=== PATIENT | male | born 2000 | race Caucasian/White ===

== ENCOUNTER 2021-07-01 22:22 | Emergency (ER) | payer OTHER, SELFPAY ==
--- NOTE | ~2021-07-01 | CT_ITS ---
EXAMINATION: NONCONTRAST HEAD CT NONCONTRAST CERVICAL SPINE CT INDICATION INFORMATION: Syncope, struck head, confused, slow speech COMPARISON: None TECHNIQUE: Separate noncontrast CT examinations of the head and cervical spine were performed. Coronal head CT images and coronal and sagittal cervical spine images were created at the technologist workstation. DLP: 1120 mGy-cm DOSE LOWERING TECHNIQUES: This CT examination was performed using dose optimization techniques as appropriate, variously including the following: - Automated exposure control - Adjustment of mA and/or kV according to patient size (this includes techniques or standardized protocols for targeted exams were dose is matched to indication/reason for exam; i.e. extremities or head) - Use of iterative reconstruction technique FINDINGS: Head: There is no evidence of acute intracranial hemorrhage or territorial infarction. No abnormal mass-effect or midline shift is seen. Mayer to white matter differentiation is well preserved. No extra-axial fluid collections are identified. The ventricles are normal in size. There is no abnormal attenuation within the brain parenchyma. The osseous structures and soft tissues are normal. The mastoid air cells and visualized portions of the paranasal sinuses are well-aerated. Cervical spine: There is anatomic alignment of the vertebral bodies and posterior elements. Vertebral body heights are maintained. There is mild disc space narrowing of the mid to lower cervical spine with minimal chronic appearing endplate irregularity. No evidence of acute fracture. No prevertebral soft tissue swelling. Visualized portions of the lung apices are unremarkable. The thyroid gland is unremarkable. CT/CT cervical spine wo con IMPRESSION: No acute findings identified in the head or cervical spine.
--- NOTE | 2021-07-01 22:27 | ECG_ITS ---
Test Reason : SYNCOPE Blood Pressure : / mmHG Vent. Rate : 062 BPM Atrial Rate : 062 BPM P-R Int : 178 ms QRS Dur : 106 ms QT Int : 398 ms P-R-T Axes : 062 079 042 degrees QTc Int : 403 ms Normal sinus rhythm Intra-ventricular conduction delay Possible RSR' or QR pattern in V1 suggests right ventricular conduction delay Borderline ECG No previous ECGs available Referred By: Debbie Vaughn Electronically Signed By:TAN STRAUSS MD
--- NOTE | 2021-07-01 22:33 | ED.SYNCOPE ---
HPI - Syncope General Chief Complaint: Seizure Stated Complaint: syncope Time Seen by Provider: 07/01/21 22:27 Source: patient Mode of arrival: ambulatory Limitations: no limitations and other (poor historian) History of Present Illness HPI narrative: 21-year-old male no known medical history presents to the emergency department via EMS status post an unwitnessed syncopal episode. Patient tells me that he had a small cut on his right pointer finger, he saw the blood, he immediately started experiencing severe chest pain, in seconds later he passed out in the bathroom. He tells me this has never happened to him before. After this happened, he felt very shaky. He states that the chest pain subsided. He tells me he was smoking today, but denies any other drug use. Patient is very slow to respond to my questions. He denies shortness of breath, fevers, chills, nausea, vomiting, diarrhea, abdominal pain, headache, vision changes, neck pain. He denies cardiac family history. No incontinence with this episode. No hx of syncope or seizure MD complaint: loss of consciousness Onset (ago): minute(s) (30) Description of event: post-event confusion Prodromal symptoms: other (chest pain ) Witnessed: No Context: at rest Current symptoms: lightheaded and other (slow to respond ) Treatments prior to arrival: none Related Data Allergies Allergy/AdvReac Type Severity Reaction Status Date / Time Unable to Assess Allergy Unverified 07/01/21 22:27 Review of Systems Review of Systems: Constitutional : No Weight loss, No Fever, No Chills, No Fatigue, No Malaise ENT/Mouth : No sore throat, No Rhinorrhea Eyes: No Eye Pain, No Swelling, No Redness Cardiovascular : No Chest Pain, No SOB, No Dyspnea on Exertion, No Orthopnea, No Edema, No Palpitations Respiratory : No Cough, No Sputum, No Wheezing Gastrointestinal : No Nausea, No Vomiting, No Diarrhea, No Constipation, No abdominal Pain, No Hematochezia, No Melena Genitourinary : No Dysuria, No Urinary Frequency, No Hematuria, Musculoskeletal : No joint pain, No Myalgias, No Joint Swelling Skin : No Skin Lesions, No rash Neuro : No Weakness, No Numbness, No Dizziness, No Headache, + syncope, +slow speech All other systems reviewed and are negative [facility] Past Medical History Attestation statement: The following information was validated with the patient. Source: old records reviewed and nursing notes reviewed Medical History (Updated 07/02/21 @ 01:10 by JAYCOB Perkins) No known health problems Social History Social History Advance Directives: No Advance Directives Information Provided: Yes Physical Exam Vital Signs: Vital Signs: Last Vital Signs Temp 98.7 F 07/01/21 22:37 Pulse 63 07/02/21 01:34 Resp 20 07/02/21 01:34 BP 125/70 07/02/21 01:34 Pulse Ox 98 07/01/21 22:37 Body Mass Index 23.3 Appearance: Alert.? Oriented X3.? No acute distress.?+patient very slow to respond to basic questions Head: Normocephalic, atraumatic, no step-offs or deformities Eyes: Pupils equal, round and reactive to light.? ENT: Pharynx normal.? Neck: Normal inspection.? Neck supple.? CVS: Normal heart rate and rhythm.? Pulses normal.? Respiratory: No respiratory distress.? Breath sounds normal.? Abdomen: Soft and nontender.? Skin: Skin warm and dry.? Normal skin color.? Normal skin turgor.?+ 2 cm linear laceration to the dorsal aspect of distal second digit Extremities: No lower extremity edema.? No calf ttp. 5/5 strength to bilateral upper and lower extremities Back: No midline tenderness, no C-spine tenderness, full range of motion, no CVA tenderness bilaterally Neuro: Oriented X 3.? No motor deficit.? No sensory deficit. Course Reevaluation(s) Reevaluation #1: Labs show no acute infection, normocytic anemia is noted, no acute electrolyte abnormalities. COVID negative. Urine tox screen pending Time: 00:34 Reevaluation #2: CT of head/ neck negative. Utox pending I suspect patient had a vasovagal syncopal episode Patient is safe for discharge home with PCP follow-up. He has been advised to return to the emergency department with new or worsening symptoms. He has also been advised to return in 7-10 days for suture removal. I have given him warning sign/signs of infection and have told him to return if any of these occur. Safe for discharge home. No need to administer a Boostrix shot at this time as patient is up-to-date. Time: 01:00 MDM - Syncope MDM Narrative Medical decision making narrative: [birth year] 21 yo male no known pmhx presents with concerns of a laceration to the dorsal aspect of his second right finger (distal aspect) w/ steam box tender and s/p a syncopal episode w/ preceding chest pain prior to his arrival. He was BIBA form home. Patient up to date on tetanus shot Upon physical examination patient is slow to answer questions and appears paranoid, he is alert and oriented x3. Lungs are clear. S1-S2 appreciated free of murmurs. Abdomen soft nontender nondistended. No focal neuro deficits. HEENT pupils equal round and reactive to light. Head is normocephalic, atraumatic no step-offs or deformities. No C-spine tenderness. Based off patient's history, and physical examination I suspect that this was a vasovagal episode status post seeing blood on his finger. Unlikely that this was a seizure, patient tells me he got very nervous when he woke up on the ground he felt a little confused and he was shaky. Plan at this time is to obtain basic labs, EKG, troponin, CT of the head/neck, orthostatic vital signs. Patient will be given fluids. Will rule out fractures/dislocations as well as intracranial hemorrhage. Medical Records Attestation: I reviewed the patient's medical records. Lab Data Attestation: I reviewed the patient's lab results. Result diagrams: 07/01/21 23:38 07/01/21 23:38 Labs: Lab Results 07/01/21 07/01/21 07/01/21 Range/Units 22:31 23:38 23:38 WBC 7.0 (4.8-10.8) X10*3/uL RBC 4.21 L (4.60-5.80) X10*6/uL Hgb 12.7 L (14.0-18.0) g/dl Hct 37.2 L (42.0-52.0) % MCV 88.4 (80.0-98.0) fL MCH 30.2 (27.0-33.0) pg MCHC 34.1 (31.0-36.0) g/dl RDW 11.9 (11.0-16.0) % Plt Count 166 (160-400) X10*3/uL MPV 10.6 (9.4-12.4) fL Immature Gran % (Auto) 0.1 (0.0-0.4) % Neut % (Auto) 63.8 (45-73) % Lymph % (Auto) 25.1 (20-40) % Hamblen % (Auto) 9.4 (2-11) % Eos % (Auto) 1.0 (0-4) % Baso % (Auto) 0.6 (0-2) % Lymph # (Auto) 1.8 (1.2-4.9) X10*3/uL Hamblen # (Auto) 0.7 (0.1-1.2) X10*3/uL Eos # (Auto) 0.1 (0.0-0.4) X10*3/uL Baso # (Auto) 0.0 (0.0-0.2) X10*3/uL Abs Immat Gran (auto) 0.01 (0.00-0.03) X10*3/uL Absolute Neuts (auto) 4.5 (2.0-8.3) x10*3/uL Absolute Nucleated RBC 0.000 (0.0-0.012) X10*3/uL Nucleated RBC % (auto) 0.0 (0.0-0.2) /100WBC Sodium 140 (135-145) mmol/L Potassium 4.0 (3.3-5.1) mmol/L Chloride 110 H (96-108) mmol/L Carbon Dioxide 25 (22-29) mmol/L Anion Gap 9 L (12-20) BUN 16 (9-16) mg/dL Creatinine 0.93 (0.5-1.4) mg/dL Estim Creat Clear Calc 107.4 Estimated GFR > 60 POC Glucose 102 (60-115) mg/dL Random Glucose 144 H (60-115) mg/dL Calcium 8.4 (8.4-10.2) mg/dL Magnesium 1.9 (1.6-2.6) mg/dL Total Bilirubin 0.4 (0.0-1.0) mg/dL AST 17 (5-37) U/L ALT 13 (0-40) U/L Alkaline Phosphatase 72 (39-117) U/L Troponin I High Sens (<3.5-35.0) ng/L Total Protein 5.8 L (6.5-8.0) g/dL Albumin 3.7 (3.5-5.0) g/dL COVID-19 ([facility]) (Negative) COVID-19 Clin Com 07/01/21 07/01/21 Range/Units 23:38 23:38 WBC (4.8-10.8) X10*3/uL RBC (4.60-5.80) X10*6/uL Hgb (14.0-18.0) g/dl Hct (42.0-52.0) % MCV (80.0-98.0) fL MCH (27.0-33.0) pg MCHC (31.0-36.0) g/dl RDW (11.0-16.0) % Plt Count (160-400) X10*3/uL MPV (9.4-12.4) fL Immature Gran % (Auto) (0.0-0.4) % Neut % (Auto) (45-73) % Lymph % (Auto) (20-40) % Hamblen % (Auto) (2-11) % Eos % (Auto) (0-4) % Baso % (Auto) (0-2) % Lymph # (Auto) (1.2-4.9) X10*3/uL Hamblen # (Auto) (0.1-1.2) X10*3/uL Eos # (Auto) (0.0-0.4) X10*3/uL Baso # (Auto) (0.0-0.2) X10*3/uL Abs Immat Gran (auto) (0.00-0.03) X10*3/uL Absolute Neuts (auto) (2.0-8.3) x10*3/uL Absolute Nucleated RBC (0.0-0.012) X10*3/uL Nucleated RBC % (auto) (0.0-0.2) /100WBC Sodium (135-145) mmol/L Potassium (3.3-5.1) mmol/L Chloride (96-108) mmol/L Carbon Dioxide (22-29) mmol/L Anion Gap (12-20) BUN (9-16) mg/dL Creatinine (0.5-1.4) mg/dL Estim Creat Clear Calc Estimated GFR POC Glucose (60-115) mg/dL Random Glucose (60-115) mg/dL Calcium (8.4-10.2) mg/dL Magnesium (1.6-2.6) mg/dL Total Bilirubin (0.0-1.0) mg/dL AST (5-37) U/L ALT (0-40) U/L Alkaline Phosphatase (39-117) U/L Troponin I High Sens < 3.5 (<3.5-35.0) ng/L Total Protein (6.5-8.0) g/dL Albumin (3.5-5.0) g/dL COVID-19 ([facility]) Negative (Negative) COVID-19 Clin Com See Note ECG Data Attestation: I personally reviewed and interpreted this ECG as follows: ECG interpretation date: 07/02/21 ECG interpretation time: 10:31 Prior ECG tracings: available for review Interpretation: Ventricular rate of 62, MN normal, QRS normal, QT/QTC normal EKG shows normal sinus rhythm. No ST elevations or inversions. No acute ischemia. No EKGs to compare with. Procedures Laceration Laceration 1: Site: hand (second digit ) Side (If applicable): right Size (cm): 2 Description: linear Depth: simple, single layer Local Anesthetic: lidocaine 2% Amount of anesthesia used (mL): 3 Pre-repair: wound explored, irrigated extensively and deep structures intact Skin layer closed with: nylon Size (cm): 4-0 Number of sutures: 2 Technique: simple, interrupted Critical Care Time Critical Care Time Critical Care Time: No Discharge Plan Discharge Clinical Impression: Vaso-vagal reaction, Syncope, Laceration of finger of right hand Patient Disposition: Home, Self-Care Instructions: Laceration (ED), Syncope (ED) Additional Instructions: Follow-up with your primary care provider this week. Return in 7-10 days for suture removal Return to the emergency department with new or worsening symptoms. Such as fevers, chills, redness of the skin, discharge from the area, chest pain, shortness of breath, loss of consciousness, dizziness In case of emergency call 911 Referrals: Physician,Unknown J [Primary Care Provider] - 2 days
[2021-07-01 22:37] VITALS: BP 110/60; BP 120/74; PULSE 64; RESP 16; TEMP 37.1; O2SAT 98; BMI 23.3
[2021-07-01 22:38] LABS: Glucose, Whole Blood 102 mg/dL (60-115)
[2021-07-01] MEDS: Lidocaine HCl 2 % MPF 5 ML VIAL SUBCUT (23:11)
[2021-07-01] MEDS: 0.9 % Sodium Chloride 1,000 ML 999 ML IV (23:11)
--- NOTE | 2021-07-01 23:13 | PC.NURSE ---
PA IN ROOM FOR SUTURES TO RIGHT FINGER. IV PLACED PHARMACIST APPRENTICE BY EMS. NS UP AND RUNNING W/O.
[2021-07-01 23:44] LABS: MANUAL DIFF FLAG NO
[2021-07-01 23:48] LABS: Basophils Percent Auto 0.6 % (0-2); Eosinophils Absolute Auto 0.1 X10*3/uL (0.0-0.4); Hematocrit 37.2 % (42.0-52.0); Hemoglobin 12.7 g/dl (14.0-18.0); Imm Gran Abs Auto 0.01 X10*3/uL (0.00-0.03); Imm Gran Pct Auto 0.1 % (0.0-0.4); Lymphocytes Absolute Auto 1.8 X10*3/uL (1.2-4.9); Lymphocytes Percent Auto 25.1 % (20-40); Mean Corpuscular HGB Conc 34.1 g/dl (31.0-36.0); Mean Corpuscular Hemoglobin 30.2 pg (27.0-33.0); Mean Corpuscular Volume 88.4 fL (80.0-98.0); Mean Platelet Volume 10.6 fL (9.4-12.4); Monocytes Absolute Auto 0.7 X10*3/uL (0.1-1.2); Monocytes Percent Auto 9.4 % (2-11); Neutrophils Absolute Auto 4.5 x10*3/uL (2.0-8.3); Neutrophils Percent Auto 63.8 % (45-73); Platelet Count 166 X10*3/uL (160-400); Red Blood Count 4.21 X10*6/uL (4.60-5.80); Red Cell Distribution Width 11.9 % (11.0-16.0)
[2021-07-02 00:02] LABS: Alanine Aminotransferase 13 U/L (0-40); Albumin Level 3.7 g/dL (3.5-5.0); Alkaline Phosphatase 72 U/L (39-117); Anion Gap 9 (12-20); Aspartate Amino Transferase 17 U/L (5-37); Bilirubin Total 0.4 mg/dL (0.0-1.0); Blood Urea Nitrogen 16 mg/dL (9-16); COVID-19 Test Negative (Negative); Calcium 8.4 mg/dL (8.4-10.2); Carbon Dioxide 25 mmol/L (22-29); Chloride 110 mmol/L (96-108); Creatinine Clr Calc Pharmacy 107.4; Estimated Glomerular Filt Rate > 60; Glucose Random 144 mg/dL (60-115); IDNOW Serial# 9DD0AD1C; Magnesium 1.9 mg/dL (1.6-2.6); Sodium 140 mmol/L (135-145); Total Protein 5.8 g/dL (6.5-8.0)
[2021-07-02 00:03] LABS: Troponin-I High Sensitivity < 3.5 ng/L (<3.5-35.0)
[2021-07-02 01:31] VITALS: BP 114/66; BP 117/68; PULSE 60; PULSE 62
[2021-07-02 01:33] VITALS: BP 125/70; PULSE 63
[2021-07-02 01:34] VITALS: BP 125/70; PULSE 63; RESP 20
[2021-07-02 02:17] LABS: Amphetamine Screen Urine Not Detected (Not Detect); Barbiturates, Urine Not Detected (Not Detect); Benzodiazepines Screen Urine Not Detected (Not Detect); Cannabinoid Screen Urine POSITIVE (Not Detect); Cocaine Screen Urine Not Detected (Not Detect); Fentanyl, urine Not Detected (Not Detect); Opiate Screen Urine Not Detected (Not Detect); Phencyclidine Screen Urine Not Detected (Not Detect)
== END 2021-07-02 02:17 | disposition home or self-care (01) ==
LOC: HO.ED 07-02
PROVIDERS: Physician Assistant; Emergency Provider Internal Medicine
DX: R55 Syncope and collapse (principal); S61.210A Laceration without foreign body of right index finger without damage to nail, initial encounter; W45.8XXA Other foreign body or object entering through skin, initial encounter; F40.230 Fear of blood; Z20.822 Contact with and (suspected) exposure to COVID-19; Y93.9 Activity, unspecified; Y92.9 Unspecified place or not applicable; Y99.9 Unspecified external cause status
CPT/HCPCS: 12001; 36415; 70450; 72125; 80053; 80307; 82947; 83735; 84484; 85025; 87635; 93005; 96360; 99284

== ENCOUNTER 2021-07-09 08:15 | Emergency (ER) | payer OTHER, SELFPAY ==
[2021-07-09 08:47] VITALS: BP 109/67; PULSE 81; RESP 18; TEMP 36.4; O2SAT 97; BMI 23.3
--- NOTE | 2021-07-09 08:53 | ED.GENADULT ---
HPI - General Adult General Chief complaint: General Medical Stated complaint: suture removal Time Seen by Provider: 07/09/21 08:53 Source: patient Mode of arrival: ambulatory Limitations: no limitations History of Present Illness HPI narrative: 21-year-old male presents to the emergency department for removal of 2 stitches to the right pointer finger. Patient denies any signs of infection such as fevers, chills, pain, discharge from the site. He has no other questions or concerns at this time. Location: upper extremity (right pointer finger) Radiation: non-radiation Relieving factors: none Exacerbating factors: none Associated symptoms: denies other symptoms Treatments prior to arrival: none Related Data Allergies Allergy/AdvReac Type Severity Reaction Status Date / Time No Known Allergies Allergy Verified 07/09/21 08:49 Review of Systems Review of Systems: Constitutional : No Fever, No Chills, Cardiovascular : No Chest Pain, No SOB Respiratory : No Dyspnea Gastrointestinal : No abdominal pain Musculoskeletal : No Joint Swelling Skin : No rash, No skin laceration Neuro : No Weakness, No Numbness Psych : No SI/HI PMFSH Past Medical History Attestation statement: The following information was validated with the patient. Source: old records reviewed and nursing notes reviewed Medical History No known health problems Social History Social History Advance Directives: No Advance Directives Information Provided: No Physical Exam Vital Signs: Vital Signs: Last Vital Signs Temp 97.6 F 07/09/21 08:47 Pulse 81 07/09/21 08:47 Resp 18 07/09/21 08:47 BP 109/67 07/09/21 08:47 Pulse Ox 97 07/09/21 08:47 BMI result Body Mass Index 23.3 Vital signs stable Appearance: Alert.? Oriented X3.? No acute distress.? Head: Normocephalic, atraumatic, no step-offs or deformities Eyes: Pupils equal, round and reactive to light.? ENT: Pharynx normal.? Neck: Normal inspection.? Neck supple.? CVS: Normal heart rate and rhythm.? Pulses normal.? Respiratory: No respiratory distress.? Breath sounds normal.? Abdomen: Soft and nontender.? Skin: Skin warm and dry.? Normal skin color.? Normal skin turgor.?+ 2 intact sutures to distal aspect of right pointer finger no discharge from the laceration, edges well approximated, no erythema or calor. Extremities: No lower extremity edema.? No calf ttp. 5/5 strength to bilateral upper and lower extremities Back: No midline tenderness, no C-spine tenderness, full range of motion, no CVA tenderness bilaterally Neuro: Oriented X 3.? No motor deficit.? No sensory deficit. Medical Decision Making [facility] Narrative Medical decision making narrative: [id number] 21-year-old male who presents to the emergency department for removal of 2 sutures from his right distal pointer finger. Patient offers no other complaints at this time. Upon physical examination there are 2 sutures to the distal right pointer finger, no overlying erythema, calor or discharge from the area. Wound well approximated. Healed nicely. I was successfully able to remove 2 sutures from the right pointer finger. No complications. No signs of infection. Plan at this time is to discharge patient home, he has been advised to return to the emergency department with new or worsening symptoms. Critical Care Time Critical Care Time Critical Care Time: No Discharge Plan Discharge Clinical Impression: Visit for suture removal Patient Disposition: Home, Self-Care Instructions: Stitches Removal (ED) Additional Instructions: Take your medications as prescribed. Follow-up with your primary care provider this week. Return to the emergency department with new or worsening symptoms. In case of emergency call 911 Referrals: Physician,None [Primary Care Provider] - 2 days
== END 2021-07-09 09:13 | disposition home or self-care (01) ==
PROVIDERS: Emergency Provider Emergency Medicine
DX: Z48.02 Encounter for removal of sutures (principal); S61.210D Laceration without foreign body of right index finger without damage to nail, subsequent encounter; X58.XXXD Exposure to other specified factors, subsequent encounter
CPT/HCPCS: 99283